=== PATIENT | male | born 1980 | race Caucasian/White ===

== ENCOUNTER 2017-06-30 13:50 | Inpatient (IN) | payer BC, OTHER ==
--- NOTE | 2017-06-30 15:11 | RAD ---
LEFT FEMUR TWO VIEWS: History: Trauma. Comparison: None. FINDINGS: There is a tibial plateau fracture, incompletely evaluated. Large likely hemiarthrosis. The femur appears to be intact. IMPRESSION: 1. Intact femur. 2. Large likely hemiarthrosis from tibial plateau fracture. POS: TERESA
[2017-06-30] MEDS ORDERED: Morphine 4 MG/ML Carpuject ONE (15:15)
--- NOTE | 2017-06-30 15:28 | RAD ---
LEFT TIBIA FIBULA 2 VIEWS: HISTORY: Fracture. Transferred. COMPARISON: None. FINDINGS: There is a split fracture of the lateral tibial plateau with associated central depression of the lat eral tibial plateau. This fracture is comminuted. Large likely hemarthrosis. The proximal fibula a ppears to be intact. There is also a transverse-oriented fracture of the tibial metaphysis. IMPRESSION: Sagittal split lateral tibial plateau with lateral displacement of the lateral tibial plateau and med ial displacement of the medial tibial left plateau and associated transversely oriented metaphyseal f racture. POS: JORGITO
[2017-06-30] MEDS ORDERED: Promethazine HCl 25 MG/ML VIAL IM PRN ×2 (16:11)
[2017-06-30] MEDS ORDERED: Dextrose 50% Abboject 50 ML SYRINGE SLOW IVP PRN (16:11)
[2017-06-30] MEDS ORDERED: Ondansetron HCl/PF 4 MG/2 ML Vial IVP PRN (16:11)
[2017-06-30] MEDS ORDERED: Ondansetron ODT 4 MG TAB PO PRN (16:11)
[2017-06-30] MEDS ORDERED: Dextrose 5% in Water 1,000 ML IV PRN (16:11)
[2017-06-30] MEDS ORDERED: Morphine 4 MG/ML Carpuject IVP PRN (16:11)
[2017-06-30] MEDS ORDERED: Acetaminophen 500 MG TAB PO PRN (16:22)
[2017-06-30] MEDS ORDERED: TETANUS AND DIPHTHERIA TOX/PF 0.5 ML DISP.SYRIN IM ONE (18:00)
--- NOTE | 2017-06-30 18:04 | HP ---
DATE OF SERVICE: 06/30/2017 ATTENDING PHYSICIAN: Dr. Jorge Babb CONSULTING PHYSICIAN: Dr. Jeferson Bell CHIEF COMPLAINT: Evaluation of crush injury to left lower extremity. HISTORY OF PRESENT ILLNESS: Mr. Gilliland is a 36-year-old male who was transferred to the ER from [place] where he was diagnosed with a tibial plateau fracture and associated hemarthrosis. He was injured while cutting a large tree which fell on his left lower leg. He was able to extricate himself without difficulty, but did sustain some superficial scratches to the head. He denies impact to the head, loss of consciousness, dizziness, nausea, vomiting, changes in his vision or hearing, chest pain, difficulty breathing. His pain was 10/10 at first, but after receiving morphine in the ED, his pain was improved. He currently rates his pain at 6/10, relieved somewhat by rest and exacerbated with movement. He describes his pain as dull, aching and confined to his left lower leg. PAST MEDICAL HISTORY: Significant for GERD. REVIEW OF SYSTEMS: Ten point review of systems is negative except as mentioned in the HPI. ALLERGIES: No known drug allergies. PAST SURGICAL HISTORY: None. FAMILY HISTORY: Noncontributory. SOCIAL HISTORY: Drinks 1-2 beers a day, sometimes more on the weekends. He does not smoke or do other drugs. He lives at home with his . CURRENT MEDICATIONS: Omeprazole. PHYSICAL EXAMINATION: VITAL SIGNS: Blood pressure 124/82, pulse 115, respirations 18, temperature 99.4, O2 sat 94% on room air. GENERAL: Young adult male lying in bed resting comfortably in no acute distress. Does not appear to be in severe pain. HEENT: Normocephalic. Some superficial abrasions on the crown near the forehead. Eyes: Pupils equal, round, and reactive to light and accommodation. Extraocular movements intact. Ears are atraumatic. Oropharynx atraumatic. NECK: Nontender cervical spine. His trachea is midline. He has no JVD. RESPIRATORY: His breath sounds are clear to auscultation bilaterally. CARDIOVASCULAR: He has a regular rate and rhythm and normal S1 and S2. His pedal pulses are 2+ bilaterally. ABDOMEN: Soft, nontender, nondistended. No ecchymosis. Bowel sounds normal. No masses or hepatosplenomegaly. 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 His great toe strength is 5/5 bilaterally, limited active range of motion in his left leg. NEUROLOGIC: His cranial nerves II-XII are intact. He has no focal neurologic deficits. His Mari coma score is 15. He is alert and oriented x4. SKIN: Warm, dry, and well perfused. RADIOLOGIC FINDINGS: Plain films of the femur and lower leg showed a tibial plateau fracture and associated transversely oriented metaphyseal fracture. There is also hemarthrosis. EKG interpretation: A 12 lead EKG shows sinus tachycardia, rate 119, no ectopic beats. Conduction normal. ST segments normal. T-wave normal. [place] right. Clinical impression, nonspecific EKG. ASSESSMENT AND PLAN: 1. Left tibial plateau fracture. 2. Transverse metaphyseal fracture. 3. Left knee hemarthrosis. The plan will be to admit the patient to the surgical floor. He has a surgical consultation scheduled with Dr. Bell this afternoon, and he will likely go to surgery tomorrow. In the meantime, we will optimize his pain control and make him n.p.o. after midnight. The patient was seen along with Dr. Babb who agrees with this assessment and plan. [facility]
[2017-06-30] MEDS: Ketorolac Tromethamine 30 MG/ML VIAL IVP SCH ×2 (20:27→23:27)
[2017-06-30] MEDS: Sodium Chloride 0.9% 1,000 ML IV SCH (20:30)
[2017-06-30] MEDS: Famotidine 20 MG TAB PO SCH (20:32)
[2017-06-30 20:44] VITALS: BMI 28.2
--- NOTE | 2017-06-30 20:53 | CON ---
DATE OF CONSULTATION: 06/30/2017 CHIEF COMPLAINT: Left leg pain. HISTORY OF PRESENT ILLNESS: Mr. Gilliland is a 36-year-old male who was out working today. He was cut ting a tree down when the tree snapped and landed on his left leg. He also was struck with a branch on the head. He was taken to the Emergency Department. X-rays have been obtained which demonstrated a bicondylar tibial plateau fracture. He also has had abrasions to the head, although this was not found to be a serious injury. He has had pain control. He has been elevating the leg. He is in a [facility] immobilizer. PAST MEDICAL HISTORY: Negative. PAST SURGICAL HISTORY: Negative. ALLERGIES: No known drug allergies. REVIEW OF SYSTEMS: Positive for left leg pain, otherwise 10 point review of systems is negative. SOCIAL HISTORY: The patient denies tobacco or drug use, occasional alcohol use. PHYSICAL EXAMINATION: VITAL SIGNS: Stable. GENERAL: The patient is lying supine, sitting with the head of bed up, no apparent distress. HEENT: Normocephalic, atraumatic. RESPIRATORY: Breathing comfortably. ABDOMEN: Soft, nontender, nondistended. MUSCULOSKELETAL: The patient's left lower extremity has swelling about the proximal tibia. There is no significant blistering. He is somewhat tense, but not to the point of a compartment syndrome. H e is able to flex and extend the foot and ankle without significant pain. He has intact sensation. He has palpable dorsalis pedis pulse. Two-second capillary refill. IMAGES: X-rays of the femur and tibia demonstrate a displaced and comminuted bicondylar tibial plate au fracture. IMPRESSION: Left bicondylar tibial plateau fracture. PLAN: The patient will be admitted to the [facility]. He will have pain control. He needs to elevate the leg and use ice packs. He will continue his knee immobilizer. We will reassess his ski n and swelling in the morning. If he is amenable to surgery, we will go ahead and perform our open r eduction internal fixation procedure. This would need a bilateral approach to the tibia. At this po int, the patient will be n.p.o. at midnight. He will have pain control and DVT prophylaxis.
--- NOTE | 2017-06-30 21:48 | PRG ---
DATE OF SERVICE: 06/30/2017. SUBJECTIVE: This is a 36-year-old male admitted by our team earlier in the day for tibial plateau fr acture after a tree fell on his leg. Orthopedic Surgery has evaluated the patient. They plan for op erative intervention tomorrow. Patient vocalized no complaints this evening. OBJECTIVE: VITAL SIGNS: Reviewed and stable. GENERAL: Patient is resting in bed in no acute distress. Breathing is nonlabored. Knee immobilizer is in place. ASSESSMENT AND PLAN: As documented in history and physical. Patient will be n.p.o. after midnight. Continue care as ordered. Continue to monitor.
[2017-07-01] MEDS ORDERED: CEFAZOLIN/Water 2 GM/20 ML SYRINGE SLOW IVP SCH (00:01)
[2017-07-01] MEDS: Ketorolac Tromethamine 30 MG/ML VIAL IVP SCH ×3 (04:59→17:30)
[2017-07-01 05:22] LABS: #Eosinphils 0.1 thou/uL (0.0-0.7); #Lymphocytes 1.5 thou/uL (1.20-3.40); #Monocytes 0.8 thou/uL (0.11-0.59); %Basophils 0.6 % (0.0-1.0); %Eosinophils 1.1 % (0.0-10.0); %Lymphocytes 19.9 % (21.0-51.0); %Monocytes 10.9 % (0.0-10.0); %Neutrophils 67.5 % (42.0-75.0); Hemoglobin 12.1 g/dL (14.0-18.0); Mean Corpuscular HGB CONC 33.1 g/dL (32.0-36.0); Mean Corpuscular Hemoglobin 31.3 pg (27.0-31.0); Mean Corpuscular Volume 94.7 fl (80.0-94.0); Mean Platelet Volume 9.4 fL (7.4-10.4); Platelet Count 121 thou/uL (130-400); RBC Distribution Width 11.7 % (11.5-14.5); Red Blood Cell (RBC) Count 3.86 mill/uL (4.70-6.10); White Blood Cell (WBC) Count 7.4 thou/uL (4.8-10.8)
[2017-07-01 05:45] LABS: Anion Gap 12 mmol/L (10-20); BUN (Urea Nitrogen) 15 mg/dL (8.9-20.6); Calc. Creatinine Clearance 127 mL/min (70-130); Calcium 8.1 mg/dL (7.8-10.44); Carbon Dioxide 23 mmol/L (22-29); Chloride 105 mmol/L (98-107); Estimated GFR-MDRD Greater than 90; Glucose 96 mg/dL (70-105); Potassium 3.8 mmol/L (3.5-5.1); Sodium 136 mmol/L (136-145)
[2017-07-01] MEDS ORDERED: Midazolam HCl 2 mg/2 ml Vial ONE ×2 (06:13→07:05)
[2017-07-01] MEDS ORDERED: Fentanyl 100 MCG/2 ML VIAL ONE (06:13)
[2017-07-01] MEDS ORDERED: HYDROmorphone 0.5 MG/0.5 ML SYRINGE ONE (06:13)
[2017-07-01] MEDS ORDERED: CEFAZOLIN/Water 2 GM/20 ML SYRINGE ONE (07:05)
[2017-07-01] MEDS ORDERED: HYDROcodone/Acetaminophen 10/325 mg Tablet PO PRN ×3 (07:45→10:00)
[2017-07-01] MEDS: Famotidine 20 MG TAB PO SCH ×2 (08:09→20:29)
[2017-07-01] MEDS: Sodium Chloride 0.9% 1,000 ML IV SCH (10:12)
[2017-07-01] MEDS ORDERED: Enoxaparin Sodium 40 MG/0.4 ML SYRINGE SC SCH (11:00)
--- NOTE | 2017-07-01 12:16 | RAD ---
LEFT KNEE 4 VIEWS: Date: 07/01/17 HISTORY: Knee fracture. COMPARISON: 06/30/17. FINDINGS: Split fracture through the lateral tibial plateau with central depression and up to 1.0 cm interartic ular gap is similar in appearance to the previous exam. Comminution is present with extension to each side of the tibial metaphysis. Femoral condyles and proximal fibula are intact. Lipohemarthrosis is apparent on the lateral view. IMPRESSION: Stable radiographic appearance of the comminuted interarticular left proximal tibial fracture. POS: JORGITO
--- NOTE | 2017-07-01 12:27 | RAD ---
THREE VIEWS LEFT ANKLE: DATE: 07/01/17. HISTORY: Tibial fracture. FINDINGS: The ankle mortise is congruent. There is no fracture, dislocation, or other osseous abnormality invo lving the left ankle. IMPRESSION: No acute osseous abnormality. POS: JORGITO
[2017-07-01] MEDS: HYDROcodone/Acetaminophen 10/325 mg Tablet PO SCH ×3 (12:49→20:30)
--- NOTE | 2017-07-01 13:09 | CT ---
CT LEFT KNEE NONCONTRAST: HISTORY: Left tibia fracture. FINDINGS: Extensively comminuted split depression fracture involving the lateral tibial plateau includes multip le intraarticular components. The largest shows a 1.6 cm transverse gap. There is 0.4 cm depression of the majority of the lateral tibial plateau. Comminuted fracture planes extend to each side of th e tibial metaphysis. The distal femur and patella are intact. A nondisplaced fracture involves the anterior medial margin of the fibular head. Fluid and fat are present within the suprapatellar bursa. IMPRESSION: 1. Comminuted split depression fracture of the left lateral tibial plateau, as detailed above. 2. Fibular head fracture is now visible. 3. Lipohemarthrosis. POS: JORGITO
--- NOTE | 2017-07-01 15:25 | PRG ---
DATE OF SERVICE: 07/01/2017 ATTENDING PHYSICIAN: Dr. Jorge Babb. CHIEF COMPLAINT: Left tibial plateau fracture and hemarthrosis. SUBJECTIVE: Mr. Gilliland is a 36-year-old male who was admitted yesterday with a tibial plateau fract ure secondary to a large tree falling on his leg. He was originally scheduled for surgery today, but Orthopedic Surgery has decided to postpone the surgery due to significant swelling. His only compla int today is intermittent pain. OBJECTIVE: VITAL SIGNS: Blood pressure 109/66, pulse 85, temperature 98.0, respirations 16, O2 sats 96% on room air. GENERAL: Adult male lying comfortably in bed in no acute distress. HEENT: Head is normocephalic, atraumatic. RESPIRATORY: His breath sounds are clear to auscultation bilaterally. CARDIOVASCULAR: He has regular rate and rhythm. Normal S1 and S2. EXTREMITIES: Pedal pulses 2+ bilaterally. MUSCULOSKELETAL: Great toe strength 5/5 bilaterally. Significant swelling of the left knee. Knee i mmobilization in place. NEUROLOGIC: His GCS is 15. He is alert and oriented x4. SKIN: Warm, dry, and well-perfused. Cap refill less than 2 seconds. ASSESSMENT AND PLAN: 1. Left tibial plateau fracture. 2. Transverse metaphyseal fracture. 3. Left knee hemarthrosis. PLAN: The plan will be to keep the patient inhouse overnight. We will optimize his pain control. H e will also see PT and OT for help ambulating with his knee immobilizer. We will plan to discharge h im tomorrow to return to surgery per Orthopedic Surgery recommendations. The patient was seen and examined along with Dr. Babb who agrees with this assessment and plan.
--- NOTE | 2017-07-01 21:14 | PRG ---
DATE OF SERVICE: 07/01/2017 SUBJECTIVE: Mr. Gilliland is a 36-year-old male who presented to [facility] after a tree limb fell on him. He was found to have a tibial plateau fracture. The patient's surgery was postponed due to significant swelling of his extremity. A splint was placed by Orthopedic Surgery and he worked with physical therapy. The patient vocalized no complaint upon my evaluation. OBJECTIVE: Reviewed and stable. Resting in bed in no acute distress. Breathing is nonlabored. Ort hopedic dressing clean, dry, and intact with knee immobilizer in place. ASSESSMENT: As documented in daily progress note. PLAN: Continue care as ordered. Continue to monitor.
[2017-07-02] MEDS: HYDROcodone/Acetaminophen 10/325 mg Tablet PO SCH ×4 (00:52→13:30)
[2017-07-02] MEDS ORDERED: Enoxaparin Sodium 40 MG/0.4 ML SYRINGE SC SCH (09:00)
[2017-07-02] MEDS: Famotidine 20 MG TAB PO SCH (10:16)
[2017-07-02 13:12] VITALS: BP 115/57; TEMP 97.8
--- NOTE | 2017-07-02 20:13 | DIS ---
DATE OF DISCHARGE: 07/02/2017 ATTENDING PHYSICIAN: Jorge Babb D.O. CONSULTING PHYSICIAN: Jeferson Bell M.D. CHIEF COMPLAINT: Evaluation of crush injury to left lower extremity. HISTORY OF PRESENT ILLNESS: Mr. Gilliland is a 36-year-old male who was transferred to the ER from [place] where he was diagnosed with a tibial plateau fracture and associated hemarthrosis. He was injured while cutting a large tree which fell on his left lower leg. He was admitted for surgical management of his left leg. PRIMARY DIAGNOSES: 1. Left tibial plateau fracture. 2. Transverse metaphyseal fracture. 3. Left knee, likely hemarthrosis. HOSPITAL COURSE: He was admitted for surgical management of his left leg. However, after consultation with Dr. Bell in Orthopedic Surgery, it was decided to postpone surgery until swelling had subsided somewhat. While in house, his pain control was optimized. He was also seen by PT and OT. He was discharged in stable condition with orders to follow up with Dr. Bell as an outpatient. DISCHARGE MEDICATIONS: 1. Enoxaparin sodium 40 mg subcu q.a.m. 2. Hydrocodone 10/325 one tab p.o. every 4 hours. 3. Esomeprazole magnesium 20 mg p.o. daily. ACTIVITY: As tolerated. Orthopedic limitations are no weightbearing on left lower extremity. DIETARY INSTRUCTIONS: Regular diet, no restrictions. DISCHARGE EQUIPMENT AND SUPPLIES: Crutches. PLAN: Plan is for surgery with Dr. Bell. He will follow up as an outpatient. This patient was discussed with Dr. Jorge Babb who agrees with this assessment and plan. [facility]
== END 2017-07-02 14:09 | disposition home or self-care (01) | DRG 563 ==
LOC: ERS 13:50 → SURG A 15:50
PROVIDERS: ADMIT Surgery; ATTEND Surgery
DX: S82.142A Displaced bicondylar fracture of left tibia, initial encounter for closed fracture (principal); M25.062 Hemarthrosis, left knee; K21.9 Gastro-esophageal reflux disease without esophagitis; W14.XXXA Fall from tree, initial encounter
CPT/HCPCS: 36415; 80048; 85025; 93005; 96374; G0390; G8978-GP-CM; G8979-GP-CK; G8987-GO-CJ; G8988-GO-CJ; G8989-GO-CJ; J1170; J1650; J1885; J2250; J2270; J2405; J3010